=== PATIENT | female | born 1965 | race Caucasian/White ===

== ENCOUNTER 2017-05-26 14:15 | Emergency (ER) | payer MEDICAID ==
--- NOTE | 2017-05-26 15:40 | EDPHY ---
H & P Time Seen by Provider: 05/26/17 15:13 HPI/ROS: CHIEF COMPLAINT: "I am feeling anxious" HISTORY OF PRESENT ILLNESS: 52-year-old female drove to the ER complaining of high levels of anxiety for the past several days. She believes it may be secondary to recent changes in her progesterone. She denies self-injurious behavior or thoughts. No chest pain. No dyspnea. No neurologic deficits or complaints. No headache. REVIEW OF SYSTEMS: A ten point review of systems was performed and is negative with the exception of the items mentioned in the HPI PAST MEDICAL & SURGICAL HISTORY: no thyroid history SOCIAL HISTORY:[ Nonsmoker PHYSICAL EXAM (Prior to examination, patient consented to physical exam, hands were washed and my usual and customary physical exam procedures followed) 1) GENERAL: Well-developed, well-nourished, alert and oriented. Appears anxious. 2) HEAD: Normocephalic, atraumatic 3) HEENT: Pupils equal, round, reactive to light bilaterally. Sclera anicteric. 4) NECK: Full range of motion, no meningeal signs. 5) LUNGS: Clear auscultation bilaterally, no wheezes, no rhonchi, no retractions. 6) HEART: Regular rate and rhythm, no murmur, no heave, no gallop. 7) ABDOMEN: No guarding, no rebound, no focal tendernes, 8) MUSCULOSKELETAL: No peripheral edema or discoloration. 9) BACK: No obvious trauma, no visual or palpable abnormality. 10) SKIN: No rash, no petechiae. 11) Psychiatric: Patient is oriented X 3, there is no agitation. DIFFERENTIAL DIAGNOSIS: In no particular include but limited to hyperthyroidism, acute anxiety, medication adverse effect Smoking Status: Never smoked Constitutional: Initial Vital Signs Temperature (C) 37.5 C 05/26/17 14:33 Heart Rate 99 05/26/17 14:33 Respiratory Rate 16 05/26/17 14:33 Blood Pressure 199/146 H 05/26/17 14:33 O2 Sat (%) 93 05/26/17 14:33 O2 Delivery Mode Room Air Allergies/Adverse Reactions: Unable to Assess Allergy (Unverified 05/26/17 14:32) Home Medications: Medication Instructions Recorded LORazepam [Ativan] 1 mg PO Q6 PRN #5 tablet 05/26/17 Metformin HCl 05/26/17 Pregnenolone 05/26/17 Progesterone 05/26/17 Testosterone 05/26/17 MDM/Departure - [facility] ED Course/Re-evaluation: I have examined this patient, she has a nonfocal neurologic exam. She inquired whether we check progesterone levels. Discussed limitations of diagnostic studies from the emergency department. Today is Sunday. I recommend she contact her primary care provider on Sunday to discuss further testing if indicated. At this time I do not think that diagnostic studies are indicated. I have offered to provide anxiolytics in the emergency department however she declines denying that she is driving. She agrees to a prescription for benzodiazepine. Plan will be discharge. She feels comfortable being discharged. Care of patient under supervision of [secondary] supervising physician Dr Rigoberto Mckeon . - Depart Disposition: Home, Routine, Self-Care Clinical Impression: Anxiety Condition: Good Instructions: Anxiety (ED) Additional Instructions: Return to the ER if you develop worsening anxiety or any other symptoms that concern you. Prescriptions: LORazepam [Ativan] 1 mg PO Q6 PRN #5 tablet PRN Reason: Anxiety Referrals: BARBARA BURCH MD [Other] - 1-2 days without fail
[2017-05-26 15:57] VITALS: BP 133/89; PULSE 96; RESP 18; TEMP 98.6; O2SAT 99
[2017-05-26 16:42] LABS: PLATELET COUNT 448 10^3/uL (150-400)
== END 2017-05-26 15:56 | disposition home or self-care (01) ==
DX: F41.9 Anxiety disorder, unspecified (principal)